=== PATIENT | female | born 1960 | race Caucasian/White ===

== ENCOUNTER 2020-08-16 17:56 | Outpatient (CLI) | payer BC ==
--- NOTE | 2020-08-16 18:14 | RAD ---
LEFT KNEE THREE VIEW: 08/16/20 HISTORY: Knee pain. COMPARISON: None. FINDINGS: There is a mild joint effusion. Severe medial compartment degenerative disease with joint space narro wing, sclerosis and flattening. Moderate lateral compartment osteophytes as well as patellofemoral co mpartment osteophytes. Mild genu varus. IMPRESSION: High grade medial compartment degenerative change. Nonemergent evaluation for arthroplasty recommende d. POS: HOME
== END 2020-08-16 17:57 | disposition home or self-care (01) ==
LOC: SCSRAD 17:56
PROVIDERS: ATTEND Family Medicine
DX: M25.562 Pain in left knee (principal); M17.12 Unilateral primary osteoarthritis, left knee